=== PATIENT | male | born 2000 | race Caucasian/White ===

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

== ENCOUNTER 2019-05-15 17:30 | Emergency (ER) | payer MEDICAID ==
[~2019-05-15] VITALS: Ht 167.6 cm; Wt 55.2 kg
[2019-05-15 17:36] VITALS: BP 118/74
[2019-05-15] MEDS ORDERED: NEOSPORIN OINT. PKT 1 PACKET ONE (18:18)
--- NOTE | 2019-05-15 18:28 | NUR ---
Patient given discharge instructions and they have confirmed that they understand the instructions. Patient ambulatory with steady gait.
== END 2019-05-15 18:29 | disposition home or self-care (01) ==
LOC: ED 18:00
DX: H60.12 Cellulitis of left external ear (principal); J45.909 Unspecified asthma, uncomplicated
CPT/HCPCS: 99283

== ENCOUNTER 2019-05-18 13:37 | Emergency (ER) | payer MEDICAID ==
[~2019-05-18] VITALS: Ht 167.6 cm; Wt 56.0 kg
[2019-05-18 13:51] VITALS: BP 112/68
== END 2019-05-18 14:15 | disposition home or self-care (01) ==
LOC: ED 13:50
DX: H60.12 Cellulitis of left external ear (principal); J45.909 Unspecified asthma, uncomplicated
CPT/HCPCS: 99281

== ENCOUNTER 2020-09-11 22:12 | Emergency (ER) | payer MEDICAID ==
[~2020-09-11] VITALS: Ht 170.2 cm; Wt 57.5 kg
--- NOTE | 2020-09-11 22:36 | NUR ---
PT AMBULATED TO ROOM. IN NO ACUTE DISTRESS. PT STATES HE'S THROWN UP SEVERAL TIMES TODAY, AND HAS HAD NAUSEA. PT STATES THAT HIS EMESIS IS CLEAR IN NATURE, AND MOST LIKELY THE WATER THAT HE DRINKS PRIOR TO IT. HAS TRIED TO EAT PLAIN WHITE TOAST AND THOUGHT IT WOULD HELP, BUT ALSO THREW THAT UP EARLIER IN THE DAY. 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 MUCOUS MEMBRANE STICKY AND PINK.
[2020-09-11] MEDS ORDERED: ONDANSETRON 2MG/ML, 2ML ONE (22:49)
[2020-09-11] MEDS ORDERED: SODIUM CHLORIDE 0.9% 1,000ML IVBOLUS ONE (23:00)
[2020-09-11] MEDS ORDERED: ONDANSETRON 2MG/ML, 2ML IVPush ONE (23:00)
[2020-09-11 23:18] LABS: BASOPHILS % (AUTO) 0 % (0-1); EOSINOPHILS % (AUTO) 0 % (1-7); LYMPHOCYTES % (AUTO) 4 % (22-44); MEAN CORPUSCULAR HEMOGLOBIN 31.1 pg (27.5-34.5); MEAN CORPUSCULAR HGB CONC 34.5 g/dL (33.2-36.2); MEAN PLATELET VOLUME 7.4 fL (7.4-10.4); MONOCYTES % (AUTO) 4 % (2-9); NEUTROPHILS % (AUTO) 92 % (42-75); PLATELET COUNT 260 x10^3/uL (130-400); RED BLOOD COUNT 5.05 x10^6/uL (4.38-5.82); RED CELL DISTRIBUTION WIDTH 12.7 % (9.4-14.8)
--- NOTE | 2020-09-11 23:19 | NUR ---
PIV STARTED AND BLOOD DRAWN AT SAME TIME AND SENT TO LAB. PT TOLERATED WELL. PIV SECURE, AND IVF STARTED TO RUN OVER ONE HOUR.
[2020-09-11 23:21] LABS: MD SCAN
[2020-09-11 23:29] LABS: ALANINE AMINOTRANSFERASE 16 U/L (12-78); ALBUMIN 4.2 g/dL (3.4-5.0); ANION GAP 8 mmol/L (5-15); CALCIUM 9.2 mg/dL (8.5-10.1); CHLORIDE 110 mmol/L (98-107); CREATININE 1.24 mg/dL (0.7-1.3)
[2020-09-11 23:31] LABS: ALKALINE PHOSPHATASE 89 U/L (45-117); BILIRUBIN,TOTAL 1.1 mg/dL (0.2-1.0); TOTAL PROTEIN 7.9 g/dL (6.4-8.2)
--- NOTE | 2020-09-11 23:34 | NUR ---
PT PROVIDED URINE FOR EXAMS, AND SAMPLE SENT TO LAB.
[2020-09-11 23:37] VITALS: BP 146/78
[2020-09-12 00:04] LABS: MICROSCOPIC INDICATED
== END 2020-09-12 00:43 | disposition home or self-care (01) ==
LOC: ED 09-12 00:15
DX: A09 Infectious gastroenteritis and colitis, unspecified (principal); R11.2 Nausea with vomiting, unspecified
CPT/HCPCS: 36415; 80053; 81001; 83690; 85025; 87086; 96361; 96374; 99283; J2405; J7030